=== PATIENT | female | born 1980 ===

== ENCOUNTER 2018-03-27 21:02 | Emergency (ER) | payer OTHER ==
[~2018-03-27] VITALS: Ht 165.1 cm; Wt 63.5 kg
[~2018-03-27 21:02] MED LIST: BUCALSEP SPRAY30 ML MM; CEFTIN250 MG PO; CITRANATAL B-C1 EAC1; FIORICET 50-321 EACH PO; NASONEX17 GM NS; SYNTHROID150 MCG; TRAMADOL HCL-AP1 TAB PO; ZITHROMAX200 MG PO; ZYRTEC10 MG PO
[2018-03-27] MEDS ORDERED: MOUTHWASH-OM240 ML MM (22:55)
== END 2018-03-27 23:01 | disposition home or self-care (01) ==
LOC: ER
DX: J02.8 Acute pharyngitis due to other specified organisms (principal); B97.11 Coxsackievirus as the cause of diseases classified elsewhere

== ENCOUNTER 2019-01-19 01:45 | Emergency (ER) | payer OTHER ==
[~2019-01-19] VITALS: Ht 165.1 cm; Wt 54.4 kg
[~2019-01-19 01:45] MED LIST changes: +MOUTHWASH-OM240 ML MM
[2019-01-19] MEDS ORDERED: MAXALT MLT5 MG PO (08:33)
[2019-01-19] MEDS ORDERED: DICLOFENAC SODI75 MG PO ×2 (08:33→08:35)
== END 2019-01-19 08:42 | disposition home or self-care (01) ==
LOC: ER 01:45
DX: G43.109 Migraine with aura, not intractable, without status migrainosus (principal)